=== PATIENT | male | born 1960 | race Caucasian/White ===

== ENCOUNTER 2017-05-22 04:05 | Emergency (ER) | payer OTHER ==
[~2017-05-22] VITALS: Ht 182.9 cm; Wt 124.5 kg
[2017-05-22 04:15] VITALS: BP 133/93; PULSE 96; RESP 16; TEMP 97.3
[2017-05-22] MEDS ORDERED: MULT1TAB46 PO (04:51)
[2017-05-22] MEDS ORDERED: TETANUS/DIPHTHERIA TOXOID ADULT 0.5 ML VIAL IM ONE (05:30)
[2017-05-22 05:38] VITALS: BP 135/81; PULSE 82; RESP 18; O2SAT 95
--- NOTE | 2017-05-22 05:39 | PD ---
HPI Chief Complaint: Laceration/Skin Injury Time Seen by Provider: 05:08 Travel History International Travel<30 days: No Contact w/Intl Traveler<30days: No Traveled to known affect area: No History of Present Illness HPI 57-year-old male presents to the emergency department by private transportation for evaluation of facial contusion and laceration. According to the patient just prior to arrival to the emergency department he states he was experiencing a vivid dream and thought that a lizard was jumping and causing him to jump and he subsequently fell out of bed. Patient landed with hitting his face against the night stand. Patient states he did not hit his head did not have loss of consciousness did not injure his neck although since his arrived to the emergency department notices some mild soreness one half over 10 in intensity denies any upper extremity or lower extremity numbness tingling or weakness or other injury. Patient did sustain an abrasion and laceration to his left cheek. Patient noted some redness of the eye and denies any visual disturbance. Patient rates his overall discomfort 4/10 in intensity. Patient also abraded his right lower leg. Patient denies any blood thinning medications. Patient is not diabetic. Last tetanus immunization was approximately 10 years ago. Patient denies any visual disturbance. PFSH Past Medical History Narrative Medical Gastric bypass; alcohol use; nursing notes reviewed Medical History: Denies Significant Hx Diminished Hearing: No Tetanus Vaccination: > 5 Years Influenza Vaccination: Yes ?: Not Past Surgical History Other Surgery: Yes (Gastric Bypass) Social History Alcohol Use: Yes Tobacco Use: No Substance Use: No Allergies-Medications (Allergen,Severity, Reaction): Coded Allergies: No Known Allergies (Unverified , 05/22/17) Reported Meds & Prescriptions Reported Meds & Active Scripts Active Reported Multi Vitamin Daily (Multiple Vitamin) 1 Tab Tab 1 Tab PO DAILY Review of Systems Except as stated in HPI: all other systems reviewed are Neg General / Constitutional: No: Fever, Chills Eyes: Positive: Redness, No: Diploplia, Blurred Vision, Photophobia, Visual changes HENT: No: Headaches, Neck Stiffness Cardiovascular: No: Chest Pain or Discomfort Respiratory: No: Shortness of Breath Gastrointestinal: No: Nausea, Vomiting, Abdominal Pain Genitourinary: No: Flank Pain Musculoskeletal: No: Pain Skin: Positive Other (Superficial laceration left cheek with abrasion abrasion right lower leg), No Rash Neurologic: No: Weakness, Dizziness, Syncope, Focal Abnormalities, Coordination Problem, Headache, Change in Mentation, Slurred Speech, Seizures Psychiatric: No: Anxiety Endocrine: No: Heat Intolerance Hematologic/Lymphatic: No: Easy Bruising Physical Exam Narrative GENERAL: Well-developed well-nourished male no acute distress no respiratory distress; GCS 15 SKIN: Warm and dry. HEAD: Normocephalic. Atraumatic. No scalp soft tissue swelling abrasion laceration or bony abnormality EYES: No scleral icterus. No injection or drainage. Bilateral pupils equal round reactive to light extraocular muscles intact. Injection of the left eye. No gross hyphema. No pupil irregularity. No fluorescein uptake. No periorbital rim point tenderness soft tissue swelling or bony abnormality. ENT : Airway is patent, mucous membranes moist, edentulous, no point tenderness along the angle of the jaw or mandible. Superficial linear laceration 3 cm to the left cheek with neighboring abrasion. NECK: Supple, trachea midline. No midline tenderness to direct palpation along the cervical spine and no paravertebral muscle spasm to palpation. No JVD or lymphadenopathy. CARDIOVASCULAR: Regular rate and rhythm without murmurs, gallops, or rubs. RESPIRATORY: Breath sounds equal bilaterally. No accessory muscle use. GASTROINTESTINAL: Abdomen soft, non-tender, nondistended. MUSCULOSKELETAL: No cyanosis, or edema. Superficial abrasion to the right lower leg. No deformity or laceration noted. BACK: Nontender without obvious deformity. No CVA tenderness. Data Data Last Documented VS Vital Signs Date Time Temp Pulse Resp B/P (MAP) Pulse Ox O2 Delivery O2 Flow Rate FiO2 05/22/17 05:38 82 18 135/81 (99) 95 Room Air 05/22/17 04:15 97.3 Orders Orders Tetanus/Diphtheria Tox Adult (Tetanus/Di (05/22/17 05:30) Wound Care (05/22/17 05:22) MDM Medical Decision Making Medical Screen Exam Complete: Yes Emergency Medical Condition: Yes Medical Record Reviewed: Yes Differential Diagnosis Facial contusion, laceration, fracture, minor closed head injury, cervical strain Narrative Course 57-year-old male with facial contusion and superficial laceration and left subconjunctival hemorrhage without hyphema iritis or globe injury; tetanus status updated wound sites cleansed and wound closure with wound adhesive. Visual acuity is right eye 20/25 left eye 20/30 both eyes 20/20 without corrective lenses Laceration repair with Dermabond Procedures Procedure Narrative LACERATION LOCATION: left cheek LENGTH: 3 cm NUMBER OF STITCHES/BRIGHT: wound adhesive REPAIR: The area of the laceration was prepped with NS/Betadine. The wound was copiously irrigated and explored without evidence of foreign body, tendon injury or neurovascular injury. The wound was closed using wound adhesive. This was a single layer repair. A sterile dressing was applied. The patient was advised to keep the site clean and dry. Patient tolerated the procedure well. Diagnosis Primary Impression: Facial contusion Qualified Codes: S00.83XA - Contusion of other part of head, initial encounter Additional Impressions: Laceration of left cheek Qualified Codes: S01.412A - Laceration without foreign body of left cheek and temporomandibular area, initial encounter Subconjunctival hemorrhage of left eye Referrals: [employer] 1 day Patient Instructions: General Instructions Additional Instructions: Keep wound site clean and dry Use ice pack intermittently for the first 12-24 hours to areas of soft tissue swelling Follow-up with your primary care provider Recommend follow-up with junior accountant 1 day Return to the emergency department for any concerns or change in condition May take acetaminophen or ibuprofen per package directions as needed for discomfort or for fever 100.4F or greater Med/Other Pt SpecificInfo: No Change to Meds Disposition: 01 DISCHARGE HOME Condition: Stable Katja Acuña MD May 22, 2017 05:39
== END 2017-05-22 06:08 | disposition home or self-care (01) ==
LOC: PHED 04:05
DX: S00.83XA Contusion of other part of head, initial encounter (principal); S01.412A Laceration without foreign body of left cheek and temporomandibular area, initial encounter; H11.32 Conjunctival hemorrhage, left eye; S80.811A Abrasion, right lower leg, initial encounter; W06.XXXA Fall from bed, initial encounter; Z98.84 Bariatric surgery status; Z23 Encounter for immunization
CPT/HCPCS: 12013; 90471; 90714